=== PATIENT | male | born 1930 ===

== ENCOUNTER 2019-05-15 09:16 | Outpatient (CLI) | payer OTHER | END 2019-05-15 15:00 | disposition home or self-care (01) | LOC: RX STUDY 09:16 | DX: J84.112 Idiopathic pulmonary fibrosis (principal); J42 Unspecified chronic bronchitis; N40.0 Benign prostatic hyperplasia without lower urinary tract symptoms; R13.19 Other dysphagia; E78.00 Pure hypercholesterolemia, unspecified ==